=== PATIENT | female | born 1955 | race Caucasian/White ===

== ENCOUNTER 2017-11-08 08:31 | Outpatient (CLI) | payer OTHER | END 2017-11-08 08:32 | disposition home or self-care (01) | LOC: BICMAMMO 08:31 | PROVIDERS: ATTEND Family Medicine | DX: Z12.31 Encounter for screening mammogram for malignant neoplasm of breast (principal); Z80.3 Family history of malignant neoplasm of breast | CPT/HCPCS: 77063; 77067 ==

== ENCOUNTER 2018-02-09 10:35 | Emergency (ER) | payer OTHER ==
[2018-02-09 11:24] LABS: #Basophils 0.1 thou/uL (0.0-0.2); #Eosinphils 0.2 thou/uL (0.0-0.7); #Lymphocytes 5.2 thou/uL (1.20-3.40); #Monocytes 0.8 thou/uL (0.11-0.59); #Neutrophils 4.8 thou/uL (1.40-6.50); %Basophils 0.8 % (0.0-1.0); %Eosinophils 1.9 % (0.0-10.0); %Lymphocytes 47.1 % (21.0-51.0); %Monocytes 6.9 % (0.0-10.0); %Neutrophils 43.3 % (42.0-75.0); Hemoglobin 13.5 g/dL (12.0-16.0); Mean Corpuscular HGB CONC 32.6 g/dL (32.0-36.0); Mean Corpuscular Hemoglobin 28.3 pg (27.0-31.0); Mean Corpuscular Volume 86.8 fl (81.0-99.0); Mean Platelet Volume 8.5 fL (7.4-10.4); Platelet Count 366 thou/uL (130-400); RBC Distribution Width 12.1 % (11.5-14.5); Red Blood Cell (RBC) Count 4.78 mill/uL (4.20-5.40); White Blood Cell (WBC) Count 11.1 thou/uL (4.8-10.8)
[2018-02-09] MEDS ORDERED: diphenhydrAMINE 50 MG/ML VIAL ONE (11:43)
[2018-02-09] MEDS ORDERED: Ketorolac Tromethamine 30 MG/ML VIAL ONE (11:43)
[2018-02-09 11:44] LABS: Globulin 2.6 g/dL (2.4-3.5); Protein, Total 6.7 g/dL (6.0-8.3)
[2018-02-09 11:46] LABS: ALT (SGPT) 23 U/L (8-55); AST (SGOT) 13 U/L (5-34); Albumin 4.1 g/dL (3.5-5.0); Alkaline Phosphatase 96 U/L (40-150); Anion Gap 12 mmol/L (10-20); BUN (Urea Nitrogen) 17 mg/dL (9.8-20.1); Bilirubin, Total 0.5 mg/dL (0.2-1.2); Calc. Creatinine Clearance 0 mL/min (70-130); Calcium 9.8 mg/dL (7.8-10.44); Carbon Dioxide 27 mmol/L (22-29); Chloride 102 mmol/L (98-107); Estimated GFR-MDRD 76; Glucose 116 mg/dL (70-105); Potassium 3.9 mmol/L (3.5-5.1); Sodium 137 mmol/L (136-145)
--- NOTE | 2018-02-09 11:54 | CT ---
CT HEAD WITHOUT CONTRAST: HISTORY: Mental status change. Fall last evening. Feeling dizzy. TECHNIQUE: Multiple axial tomograms obtained through the head without IV enhancement. FINDINGS: The ventricles have normal size and position. No evidence of intracranial hemorrhage. No mass, lindsay a, or infarct identified. The sinuses and mastoids are well aerated. IMPRESSION: No acute abnormality. POS: [facility]
[2018-02-09] MEDS ORDERED: Diazepam 10 MG/2 ML SYRINGE IVP SCH (12:00)
[2018-02-09] MEDS ORDERED: Metoclopramide HCl 10 MG/2 ML VIAL IVP SCH (12:00)
[2018-02-09 12:08] LABS: Bilirubin Negative (Negative); Blood, Urine Negative (Negative); Clarity CLEAR (Clear); Glucose, Urine (Dipstick) >=1000 mg/dL (Negative); Leukocyte Negative (Negative); Nitrite Negative (Negative); Protein, Urine (Dipstick) Negative (Neg-Trace); Specific Gravity, Urine 1.028 (1.002-1.036); Urobilinogen 0.2 mg/dL (0.2-1.0)
[2018-02-09 12:12] LABS: CKMB 0.7 ng/mL (0-6.6); Troponin I Less than 0.010 ng/mL (< 0.028)
[2018-02-09] MEDS ORDERED: Diazepam 5 MG TAB ONE (13:04)
== END 2018-02-09 15:13 | disposition home or self-care (01) ==
LOC: ERS 10:35
DX: R42 Dizziness and giddiness (principal); G43.909 Migraine, unspecified, not intractable, without status migrainosus; E11.9 Type 2 diabetes mellitus without complications; E03.9 Hypothyroidism, unspecified; E78.5 Hyperlipidemia, unspecified; I10 Essential (primary) hypertension; F41.9 Anxiety disorder, unspecified; F32.9 Major depressive disorder, single episode, unspecified; W19.XXXA Unspecified fall, initial encounter
CPT/HCPCS: 36415; 36416; 70450; 80053; 81003; 82550; 82553; 84484; 85025; 93005; 96361; 96374; 96375; J1200; J1885; J2765

== ENCOUNTER 2018-07-01 05:54 | Day surgery (SDC) | payer OTHER ==
[2018-06-30 10:41] VITALS: BMI 34.0
[2018-07-01] MEDS ORDERED: Midazolam HCl 2 mg/2 ml Vial ONE (08:32)
--- NOTE | 2018-07-01 09:34 | OP ---
DATE OF PROCEDURE: 07/01/2018 SURGEON: Allen Reinoso M.D. GRAIN SCOOPER SURGEON: None. PROCEDURE: Colonoscopy, surveillance. INDICATION: 1. Prior history of colon polyps, with last colonoscopy in 2013. 2. Family history of colon cancer in a first degree relative. MEDICATIONS: See anesthesia record. FINDINGS: After discussion of the risks, benefits and alternatives of the procedure, informed consen t was obtained and witnessed. Pre-endoscopic cardiopulmonary examination was satisfactory. Timeout was performed before sedation was achieved. Sedation was achieved with anesthesia assistance in the endoscopy unit. Digital rectal exam was performed which demonstrated some external hemorrhoids. A P entax adult colonoscope was inserted into the anus and passed forward to the cecum in the usual fashi on. The cecal base was identified by the appendiceal orifice as well as the ileocecal valve. The te rminal ileum was intubated and the ileal mucosa appeared normal. The colonoscope was then slowly wit hdrawn in a gradual and circumferential manner with careful examination of the entire colonic mucosa. The quality of the prep was good. The colonic mucosa appeared normal throughout. There were no po lyps or mass lesions or any other mucosal abnormalities visualized. Retroflexion in the rectum demon strated some small internal hemorrhoids. The colonoscope was then completely withdrawn and the patie nt allowed to recover. The patient tolerated the procedure well. There were no immediate post-proce dure complications. IMPRESSION: 1. Internal and external hemorrhoids. 2. Otherwise, normal colonoscopy to the terminal ileum. RECOMMENDATIONS: Repeat colonoscopy for surveillance in 5 years. She can follow up in the GI Clinic as needed.
[2018-07-01] MEDS ORDERED: PROPOFOL 200 MG/20 ML VIAL ONE (09:43)
[2018-07-01] MEDS ORDERED: Lidocaine 1% PF 5 ML VIAL ONE (09:43)
[2018-07-01] MEDS ORDERED: Acetaminophen 500 MG TAB ONE (10:44)
== END 2018-07-01 13:05 | disposition home or self-care (01) ==
LOC: SDC 05:54
PROVIDERS: ATTEND Internal Medicine
PROC: 0DJD8ZZ Inspection of Lower Intestinal Tract, Via Natural or Artificial Opening Endoscopic (ICD-10-PCS; principal; 2018-07-01)
DX: Z12.11 Encounter for screening for malignant neoplasm of colon (principal); K64.4 Residual hemorrhoidal skin tags; K64.8 Other hemorrhoids; Z86.010 Personal history of colon polyps; Z79.84 Long term (current) use of oral hypoglycemic drugs; Z79.899 Other long term (current) drug therapy; Z80.0 Family history of malignant neoplasm of digestive organs; Z88.5 Allergy status to narcotic agent; Z98.890 Other specified postprocedural states
CPT/HCPCS: J2001; J2250; J2704

== ENCOUNTER 2020-08-20 11:41 | Outpatient (CLI) | payer OTHER ==
--- NOTE | 2020-08-20 13:13 | MMO ---
Bilateral MAMMO Bilat Screen [facility]. CLINICAL HISTORY: Patient is 64 years old and is seen for screening. The patient has the following family history of breast cancer: maternal grandmother. The patient has no personal history of cancer. VIEWS: The views performed were: bilateral craniocaudal with tomosynthesis and bilateral mediolateral oblique with tomosynthesis. FILMS COMPARED: The present examination has been compared to prior imaging studies performed at [facility] on 11/08/2017, and at [facility] on 06/05/2013, 08/14/2014 and 04/02/2016. This study has been interpreted with the assistance of computer-aided detection. MAMMOGRAM FINDINGS: There are scattered fibroglandular densities. Finding 1: Benign calcifications are noted bilaterally. Finding 2: There is a stable intramammary lymph node seen in the left breast. There are no suspicious masses, suspicious calcifications, or new areas of architectural distortion. IMPRESSION: THERE IS NO MAMMOGRAPHIC EVIDENCE OF MALIGNANCY. A ROUTINE FOLLOW-UP MAMMOGRAM IN 1 YEAR IS RECOMMENDED. THE RESULTS OF THIS EXAM WERE SENT TO THE PATIENT. ACR BI-RADS Category 2 - Benign finding MAMMOGRAPHY NOTE: 1. A negative mammogram report should not delay a biopsy if a dominant of clinically suspicious mass is present. 2. Approximately 10% to 15% of breast cancers are not detected by mammography. 3. Adenosis and dense breasts may obscure an underlying neoplasm. Reported by: NITISH OLIVAS MD Electonically Signed: [id number]
== END 2020-08-20 11:42 | disposition home or self-care (01) ==
LOC: BICMAMMO 11:41
PROVIDERS: ATTEND Family Medicine
DX: Z12.31 Encounter for screening mammogram for malignant neoplasm of breast (principal); Z80.3 Family history of malignant neoplasm of breast
CPT/HCPCS: 77063; 77067